=== PATIENT | male | born 2000 | race Caucasian/White ===

== ENCOUNTER 2023-02-05 13:43 | Emergency (ER) | payer OTHER, SELFPAY ==
[2023-02-05 13:55] VITALS: BP 161/87; PULSE 125; RESP 20; TEMP 37.2; O2SAT 96; BMI 20.3
--- NOTE | 2023-02-05 14:38 | ED.GENADULT ---
HPI - General Adult General Chief complaint: Unspecified Complaint, Adult Stated complaint: Hemorrhoid Time Seen by Provider: 02/05/23 13:58 History of Present Illness HPI narrative: This 22-year-old male comes in reporting alternating diarrhea and constipation with rectal pain over the past week or 2. He thinks that he might have a hemorrhoid but does not report any sense of bulging or per tube rinse at his rectum. He did use a hemorrhoidal cream without any relief. He states that he has been under more stress recently as his father's health was deteriorating and in fact he in the last week or so. He did have a trip to [place] and back over the past weekend. He denies having any abdominal pain, fever, nausea, vomiting, or dysuria. He is otherwise in good health. Related Data Previous Rx's Medication Instructions Recorded hydrocortisone-pramoxine 1 %-1 % 1 applic ME TID-QID PRN #30 grams 02/05/23 rectal cream (Analpram-HC) ketorolac 10 mg tablet 10 mg PO Q8H 5 days #15 tabs 02/05/23 methylprednisolone 4 mg tablets in See Rx Instructions PO .COMPLEX 02/05/23 a dose pack (Medrol (Arsenio)) #21 ea Allergies Allergy/AdvReac Type Severity Reaction Status Date / Time No Known Drug Allergies Allergy Verified 02/05/23 13:55 Review of Systems Status of ROS: Reports: 10 or more systems reviewed and unremarkable except as noted in History and below Narrative: Constitutional: No fevers, no weight gain or loss. Eyes: No discharge. No vision changes. HENT: No congestion, no sore throat, no ear pain. Cardiovascular: No chest pain, no palpitations. Respiratory: No shortness of breath, no wheezes, no cough. Gastrointestinal: No abdominal pain, no vomiting, no diarrhea. He reports rectal pain that is worse with a bowel movement and somewhat relieved afterwards. Genitourinary: No dysuria, no hematuria. Musculoskeletal: Normal range of motion. Skin: No rashes, no pruritis. Neurological: No dizziness, weakness, sensory change, speech change. Endo/Heme/Allergies: No bruising or bleeding. No polydipsia. Pysch: no suicidality, no anxiety, no insomnia. All other systems reviewed and are negative. PFSH PFSH Social History Smoking Status: Never smoker How often do you have a drink containing alcohol: monthly or less How many standard drinks containing alcohol do you have on a typical day: 3 or 4 How often do you have six or more drinks on one occasion: Never AUDIT-C Alcohol total score: 2 Non-prescribed substance use: denies use Exam Narrative: Exam Narrative: Constitutional: Well-developed, well-nourished, no acute distress. HEENT: Normocephalic, atraumatic. Neck: Normal range of motion. Nontender. Supple. Heart: Regular. No murmurs. Normal rate. Intact distal pulses. Lungs: Clear to auscultation. No chest discomfort. No wheezes, rhonchi, or rales. Abdomen: Normal bowel sounds. Nontender. No rebound tenderness. Exam of the perianal region shows no sign of hemorrhoid or pilonidal cyst. There is no erythema or swelling. Genitalia: Deferred. Back: No midline tenderness. Normal range of motion. Extremities: Normal range of motion. No injury. Skin: Intact. No rash. Warm. No erythema or pallor. Neurologic: No altered sensation. No weakness. Alert and oriented. Psychiatric: No suicidality. No anxiety or depression. No insomnia. Nursing notes and vitals signs are reviewed. Const: Vital Signs, click to edit/add: Vital Signs - 24 hr 02/05/23 13:55 Temperature 98.9 F Pulse Rate [Pulse Oximeter] 125 H Respiratory Rate 20 Blood Pressure [Ri ght Upper Arm] 161/87 H Pulse Oximetry 96 Oxygen Delivery Me thod Room Air Course Vital Signs Vital signs: Initial Vital Signs Temperature 98.9 F 02/05/23 13:55 Temperature Source Temporal Artery Scan 02/05/23 13:55 Pulse Rate 125 H 02/05/23 13:55 Respiratory Rate 20 02/05/23 13:55 Blood Pressure 161/87 H 02/05/23 13:55 Blood Pressure Mean 111 02/05/23 13:55 Pulse Oximetry 96 02/05/23 13:55 Oxygen Delivery Method 02/05/23 13:55 Vital Signs Temperature 98.9 F 02/05/23 13:55 Pulse Rate 125 H 02/05/23 13:55 Respiratory Rate 20 02/05/23 13:55 Blood Pressure 161/87 H 02/05/23 13:55 Pulse Oximetry 96 02/05/23 13:55 Oxygen Delivery Method 02/05/23 13:55 Temperature 98.9 F 02/05/23 13:55 Pulse Rate 125 H 02/05/23 13:55 Respiratory Rate 20 02/05/23 13:55 Blood Pressure 161/87 H 02/05/23 13:55 Pulse Oximetry 96 02/05/23 13:55 Oxygen Delivery Method 02/05/23 13:55 Medical Decision Making MDM Narrative Medical decision making narrative: This patient comes in reporting rectal pain as described above. He arrives with normal vital signs. He does have an increased heart rate initially but this normalized. I did discuss lab and imaging options with the patient which were declined in a process of shared decision making. He does not have any family history of colon problems. He is otherwise healthy. He elected to have some treatments for his symptoms and will return if worsening or follow-up with surgery Clinic for a flexible sigmoidoscopy or colonoscopy. He did received prescription for Toradol, Analpram, and Medrol Dosepak. Discharge Plan Discharge Clinical Impression: Proctalgia Patient Disposition: Home, Self-Care Condition: Stable Additional Instructions: Take medication as needed and indicated. Follow up with clinic for flexible sigmoidoscopy or colonoscopy if not improving. Call [phone] for appointment. Return if worsening. Prescriptions: New ketorolac 10 mg tablet 10 mg PO Q8H 5 Days Qty: 15 0RF methylprednisolone [Medrol (Arsenio)] 4 mg tablets,dose pack See Rx Instructions .ROUTE .COMPLEX Qty: 21 0RF Rx Instructions: orally per package directions hydrocortisone-pramoxine [Analpram-HC] 1-1 % cream 1 applic ME TID-QID PRNQty: 30 0RF Follow Up/Referrals: Generic,Amb Provider [Primary Care Provider] - Stand Alone Forms: [facility] Info Instructions
== END 2023-02-05 14:52 | disposition home or self-care (01) ==
PROVIDERS: Emergency Provider Emergency Medicine Emergency Medical Services
DX: K62.89 Other specified diseases of anus and rectum (principal)
CPT/HCPCS: 99283; 99284